=== PATIENT | male | born 1990 | race African-American/Black ===

== ENCOUNTER 2022-11-28 09:41 | Outpatient (CLI) | payer OTHER ==
[2022-11-28 10:40] VITALS: BP 110/62
--- NOTE | 2022-11-28 10:40 | SLEEP CARE CONSULTATION ---
Information from patient questionnaire entered by Farzaneh Goodwin. I have reviewed and concur with the information entered by Farzaneh Goodwin. This document represents the service I personally performed and the decisions made by me, Sheela Kapadia ARNP. History of Present Illness Service Date and Time: 11/28/2022 0941 Reason for Visit: New patient, Previously diagnosed sleep apnea Chief Complaint: reports: Unrefreshed sleep, Observed pauses in breathing, Fatigue, Frequent awakenings at night Date of Onset: 5 YRS Usual bedtime: 9-11PM Time it takes to fall asleep: 10-20MIN Snores at night: Yes Observed to quit breathing while asleep: Yes Sleeps alone due to snoring: No Number of times waking at night: 1-3 Reasons for waking at night: reports: Gasping for air, Other (UNKNOWN ). denies: Choking, Snoring Toss, Turn, or Twitch while sleeping: Yes Recalls having dreams: Yes Usually gets out of bed at: 0530; weekends [id number] Feels refreshed in the morning: No Morning headache: No Sleepy or fatigued during the day: Yes Ever fallen asleep while driving: No Takes day naps: No (occasionally on weekends) Dreams during day naps: Yes Prior sleep studies: Yes Year and Where: 2021 [place] Additional HPI information: I had the pleasure of seeing ALEXANDER WALL today regarding the possibility of him having a sleep disorder. His current complaints are unrefreshed sleep, observed pauses in breathing, frequent night awakenings and fatigue. He was diagnosed with sleep apnea last year but has not received CPAP yet. He has worked out with [facility] to receive his CPAP. - Parasomnia Symptoms Ever been unable to move upon waking from sleep: No Walks in sleep: No Talks in sleep: No Ever acted out dreams in sleep: Yes (1 time a week, recent development) Ever felt weak in the knees when startled or emotional: No Bothered by creepy, crawly, restless sensations in legs: No Problems with memory or concentration: Yes (both) CPAP Compliance Data Compliance data discussion: He was diagnosed with sleep apnea in early 2021 but "due to shortages" was unable to get a CPAP. He has since got his orders transferred to [facility] in [place] who will be sending his CPAP in a week or two. Subjective Initial [place] Sleepiness Scale score: 6 (11/28/22) Past Medical History Past Medical History: reports: Other (eosinophilic esophagitis) Social History The patient's occupation is a AM. Patient is and lives in [place]. Have you smoked in the past 12 months: No Alcohol use: Yes Alcohol amount and frequency: 1 BEER 1X WEEK Caffeine use: Yes Caffeine amount and frequency: 1 CUP COFFEE DAILY Family History Family history of sleep disordered breathing: Yes Family Hx Sleep Apnea: Father: Snoring, Sleep apnea - Treated Allergies and Home Medications Known drug allergies: No Drug allergies reviewed: Yes (NKDA) Home medication list reviewed: Yes (no daily medications) Review of Systems Cardiovascular: denies: high blood pressure Respiratory: denies: shortness of breath Gastrointestinal: denies: heartburn Neurological: denies: headaches, head trauma Psychiatric: denies: Attention Deficit Hyperactivity, anxiety, depression Ear/Nose/Throat: reports: nasal congestion, sinus problems, nose bleeds, wisdom teeth removed. denies: tonsillectomy Immunologic: reports: allergies to food or environment (seasonal) Physical Exam Vital signs obtained and entered by: FARZANEH العلي MA Blood Pressure: 110/62 (LEFT ARM) Cuff size: regular Heart Rate: 64 O2 Saturation: 98 Height: 5 ft 11 in Weight: 175 lb 6.4 oz Body Mass Index: 24.4 BMI Classification: Normal Neck circumference: 14 Mouth and throat: narrow oropharynx Soft palate: long Hard palate: normal Uvula: normal Uvula visualization: 25% Mallampati Class III Tongue: enlarged in size with teeth lucio on lateral edges Tonsils: 1+ Neck: normal w/o lymphadenopathy or thyromegaly Heart: regular rate and rhythm Lungs: clear bilaterally Impression and Plan 1. Obstructive Sleep Apnea-Hypopnea Syndrome, unknown. Patient has completed a sleep study in [place]. He has been having difficulty getting a CPAP because of shortage of CPAPs. He states this morning with the help of his diagnosing physician he is set to receive a CPAP from [facility] in [place]. He has a copy of his sleep study he can email to us or we can try to get it from his DME. Once I have the sleep study results, I will send a prescription to [facility] to do a change in provider for them and to gain access to his new CPAP. He voiced understanding. Patient's apnea severity and rationale for treatment to reduce apnea, improve sleep quality and reduce cardiovascular and cerebrovascular events was reviewed. * Obtain copy of sleep study * Nasal auto CPAP therapy, pressure is currently unknown. * Avoid alcohol consumption near bedtime. * The patient is again cautioned about driving until sleepiness completely resolves. * Return one month after CPAP obtained. I will assess response to therapy and compliance at that time. Visit Type: In Office Time Spent with Patient (minutes): 32 Provider Statement: I spent 100% of the Face to Face Visit with the patient with greater than 50% spent counseling the patient and coordination of care.
== END 2022-11-28 09:42 | disposition home or self-care (01) ==
LOC: SC 09:41
PROVIDERS: ATTEND Nurse Practitioner Family
DX: G47.33 Obstructive sleep apnea (adult) (pediatric) (principal)
CPT/HCPCS: 99203; 99212

== ENCOUNTER 2023-03-08 15:10 | Outpatient (CLI) | payer OTHER ==
--- NOTE | 2023-03-08 15:48 | Sleep Patient Instructions ---
Sleep Center Visit Summary - Patient Visit Information Reason for Visit: First compliance visit for CPAP therapy - Patient Instructions Additional Instructions: You were here for follow up of CPAP therapy. You will be continued on CPAP therapy with pressure changed to 7-10 cmH2O. Please let us know if the pressure change is uncomfortable. You should follow up with sleep care in 1-2 months. You may contact us sooner for any questions or concerns. - Clinic Information Contact: [facility] [address] [place] [address] [email or web address] T: [phone]
--- NOTE | 2023-03-08 15:52 | SLEEP CARE CONSULTATION ---
Information from patient questionnaire entered by Farzaneh Goodwin. I have reviewed and concur with the information entered by Farzaneh Goodwin. This document represents the service I personally performed and the decisions made by me, Sheela Kapadia ARNP. History of Present Illness Service Date and Time: 03/08/2023 1510 Previous diagnosis: Moderate, Obstructive Sleep Apnea-Hypopnea Syndrome AHI: 15.4 (in 2021) Reason for follow up: first compliance (NEED MACHINE AND OR SD CARD FOR DOWNLOAD AND PRESSURE CHANGE) Equipment type: CPAP (Airsense 11, s/u 01/2023) Equipment obtained from: [facility] (got initial supplies) Mask style: Full face Mask brand: Resmed (AirFit [id number]) Backup mask available: No (will keep old mask when replaced) Last cushion change: 1 month Prior sleep studies: Yes Year and Where: 2021 [place] HPI additional information: ALEXANDER WALL was diagnosed to have moderate, AHI 15.4, obstructive sleep apnea- hypopnea syndrome and returned today for CPAP therapy first compliance follow- up. Sleep Study - Results Prior sleep studies: Yes Year and Where: 2021 [place] CPAP Compliance Data - Data Reviewed with Patient Average duration of nightly device use: 7 hours 28 minutes Compliance rate %: 90 (28/30 days used) Current pressure setting (cmH2O): 4-15 (median 7.1, avg 11.1, max 12.3) Average residual AHI: 0.6 Central apnea: 0.1 Obstructive apnea: 0.1 Hypopnea: 0.3 Average large leak: 0.5 lpm Subjective Missed days of use due to: reports: other ( had baby, stayed in hospital with her) Patient concerns: reports: aerophagia (uncomfortable, most morning, flatus), mask discomfort (sore on bridge of nose, resolved nose), air blowing in eyes, nasal congestion (sinusitus issues), dry mouth, nose, throat, other (headaches, sometimes). denies: mask leak noise, condensation in mask/hose, epistaxis Observed to snore while using device: No Current pressure setting perceived as: comfortable On therapy, patient: reports: sleeping better, awakening more refreshed, being more awake and alert during the day, more rested overall. denies: drowsiness while driving Initial [place] Sleepiness Scale score: 6 (11/28/22) Current [place] Sleepiness Scale score: 10 (03/08/23) Allergies and Home Medications Known drug allergies: No Drug allergies reviewed: Yes Home medication list reviewed: Yes (no changes) Allergy and home medication list: Allergies No Known Drug Allergies Allergy (Verified 03/07/23 14:09) Review of Systems Review of systems same as previous: Yes (no changes) Physical Exam Vital signs obtained and entered by: FARZANEH العلي MA Blood Pressure: 120/62 (LEFT ARM) Cuff size: regular Heart Rate: 68 O2 Saturation: 99 Height: 5 ft 11 in Weight: 168 lb Body Mass Index: 23.4 BMI Classification: Normal Impression and Plan 1. Obstructive Sleep Apnea-Hypopnea Syndrome, moderate, with good treatment compliance and good apnea control. On CPAP therapy, the patient has better sleep quality and is more rested overall. He has been having aerophagia with bloating in the morning and uncomfortable flatus/burping during the night. He also developed a sore on the top of the nose, but this has since resolved. He has sinus issues with continuous nasal congestion. He has also had occasional headaches and is trying not to tighten his headgear too much. To reduce symptoms of aerophagia, the CPAP pressure will be reduced to 7-10 cmH2O. Patient advised to contact me if this does not reduce symptoms or if pressure change uncomfortable. Patient's apnea severity and rationale for treatment to reduce apnea, improve sleep quality and reduce cardiovascular and cerebrovascular events was reviewed. * Change auto CPAP pressure to 7-10 cmH2O * Notify me if snoring with mask or feeling that the pressure is too much or too little * Attempt to lose weight * Call this office if any problems using CPAP * Return for follow up in 1-2 months, or sooner if concerns arise Counseling Topics: Spare mask Visit Type: In Office Time Spent with Patient (minutes): 20 Provider Statement: I spent 100% of the Face to Face Visit with the patient with greater than 50% spent counseling the patient and coordination of care.
[2023-03-08 16:22] VITALS: BP 120/62
== END 2023-03-08 15:11 | disposition home or self-care (01) ==
LOC: SC 15:10
PROVIDERS: ATTEND Nurse Practitioner Family
DX: G47.33 Obstructive sleep apnea (adult) (pediatric) (principal)
CPT/HCPCS: 99212; 99213